=== PATIENT | male | born 1975 | race Asian ===

== ENCOUNTER 2021-07-21 07:54 | Emergency (ER) | payer OTHER ==
[2021-07-21] MEDS ORDERED: OXY-IR 5MG5 MG PO ×2 (09:22→09:31)
[2021-07-21] MEDS ORDERED: ARTIFICIAL TEAR15 M6 EYEBOTH ×2 (09:22→09:24)
[2021-07-21] MEDS ORDERED: BACITRACIN15 GM TOP (09:23)
[2021-07-21] MEDS ORDERED: ILOTYCIN1 GM OU (09:35)
== END 2021-07-21 09:55 | disposition home or self-care (01) ==
LOC: FER 07:54
DX: T52.8X1A Toxic effect of other organic solvents, accidental (unintentional), initial encounter (principal); T22.512A Corrosion of first degree of left forearm, initial encounter; T22.511A Corrosion of first degree of right forearm, initial encounter; T26.52XA Corrosion of left eyelid and periocular area, initial encounter; T26.51XA Corrosion of right eyelid and periocular area, initial encounter; T32.11 Corrosions involving 10-19% of body surface with 10-19% third degree corrosion; F17.200 Nicotine dependence, unspecified, uncomplicated; Z23 Encounter for immunization
CPT/HCPCS: 90471; 90715

== ENCOUNTER 2021-07-22 19:27 | Emergency (ER) | payer OTHER ==
[~2021-07-22 19:27] MED LIST: ARTIFICIAL TEAR15 M6 EYEBOTH; BACITRACIN15 GM TOP; ILOTYCIN1 GM OU; OXY-IR 5MG5 MG PO
== END 2021-07-22 21:04 | disposition home or self-care (01) ==
LOC: FER 19:27
DX: T65.891D Toxic effect of other specified substances, accidental (unintentional), subsequent encounter (principal); T20 Burn and corrosion of head, face, and neck; T22.51 Corrosion of first degree of forearm; F17.200 Nicotine dependence, unspecified, uncomplicated
CPT/HCPCS: 90471; 99283